=== PATIENT | female | born 1945 ===

== ENCOUNTER 2017-07-10 06:24 | Day surgery (SDC) | payer OTHER ==
[2017-07-10 06:57] VITALS: BMI 34.4
[2017-07-10] MEDS ORDERED: Lactated Ringer's 500 ML IV SCH (08:15)
[2017-07-10] MEDS ORDERED: Lactated Ringer's 1,000 ML IV ONE (08:37)
[2017-07-10] MEDS ORDERED: Propofol 10 mg/ml Inj (20 ML) ONE (08:51)
[2017-07-10 09:46] VITALS: TEMP 97.3
[2017-07-10 10:26] VITALS: BP 143/63; PULSE 78; RESP 18; O2SAT 99
== END 2017-07-10 10:15 | disposition home or self-care (01) ==
LOC: C.ENDO 06:24
PROVIDERS: ATTEND Internal Medicine Gastroenterology
DX: K57.30 Diverticulosis of large intestine without perforation or abscess without bleeding (principal); K64.1 Second degree hemorrhoids; D50.9 Iron deficiency anemia, unspecified
CPT/HCPCS: 45378; J2704; J3010; J7120

== ENCOUNTER 2018-06-16 07:26 | Day surgery (SDC) | payer OTHER ==
[2017-10-30 19:46] VITALS: BMI 32.9
[2018-06-16] MEDS ORDERED: Lidocaine Hydrochloride 5 ML INJ ONE (09:00)
[2018-06-16] MEDS ORDERED: Propofol 10 mg/ml Inj (20 ML) ONE (09:00)
--- NOTE | 2018-06-16 09:02 | CP.SDSHP ---
Same Day Surgery H & P - History Proposed Procedure: EGD Pre-Op Diagnosis: SEE NOTES - Previous Medical/Surgical History Cardiac: Hypertension Pulmonary: Asthma Endocrine/Metabolic: Other Neuro: Other Misc: Other Pain: 4.Moderate Pain - Allergies Allergies: Allergies Penicillins Allergy (Severe, Verified 07/02/17 10:48) RASH - Physical Exam General Appearance: NOW Vital Signs: Vital Signs 06/16/18 08:14 Temperature 97.5 F L Pulse Rate 67 Respiratory 19 Rate Blood Pressure 147/64 O2 Sat by Pulse 98 Oximetry Mental Status: Alert & Oriented x3 Neuro: WNL Heart: Other Lungs: Other GI: Other - {Optional Preform as Required} Breast: WNL Abdomen: Other Rectal: Other Integument: WNL : WNL Ortho: Other ENT: WNL - Impression Pt. Evaluated Today:Candidate for Anesthesia & Procedure: Yes - Date & Time Time: 09:02 Short Stay Discharge - Short Stay Discharge Admitting Diagnosis/Reason for Visit: DYSPEPSIA Disposition: HOME/ ROUTINE Referrals: Esvin Hardwick MD [Primary Care Provider] -
[2018-06-16] MEDS ORDERED: Lactated Ringer's 500 ML IV ONE ×2 (09:03)
[2018-06-16 09:07] VITALS: O2SAT 100
[2018-06-16 10:53] VITALS: TEMP 97.8
[2018-06-16 11:01] VITALS: BP 119/57; PULSE 68; RESP 12
== END 2018-06-16 10:24 | disposition home or self-care (01) ==
LOC: C.ENDO 07:26
PROVIDERS: ATTEND Specialist
DX: K29.70 Gastritis, unspecified, without bleeding (principal); K29.80 Duodenitis without bleeding; K44.9 Diaphragmatic hernia without obstruction or gangrene; B96.81 Helicobacter pylori [H. pylori] as the cause of diseases classified elsewhere; Z88.0 Allergy status to penicillin; J45.909 Unspecified asthma, uncomplicated; I10 Essential (primary) hypertension
CPT/HCPCS: 43239; 88305; 88342; J2704; J2765; J7120